=== PATIENT | female | born 1990 | race Caucasian/White ===

== ENCOUNTER 2023-02-23 11:59 | Emergency (ER) | payer MEDICAID ==
[~2023-02-23] VITALS: Ht 152.4 cm; Wt 78.6 kg
[2023-02-23 12:13] VITALS: BP 127/84; PULSE 77; RESP 14; TEMP 98.4; O2SAT 98
[2023-02-23] MEDS ORDERED: KETOROLAC 30 MG/ML VIAL IM ONE (13:10)
[2023-02-23] MEDS ORDERED: LID5T TP (14:47)
[2023-02-23 15:05] VITALS: BP 131/74; PULSE 68; RESP 14; TEMP 97.1; O2SAT 100
== END 2023-02-23 15:05 | disposition home or self-care (01) ==
LOC: MED 11:59
DX: S39.012A Strain of muscle, fascia and tendon of lower back, initial encounter (principal); R03.0 Elevated blood-pressure reading, without diagnosis of hypertension; Z79.899 Other long term (current) drug therapy; V89.2XXA Person injured in unspecified motor-vehicle accident, traffic, initial encounter; Y93.89 Activity, other specified; Y92.89 Other specified places as the place of occurrence of the external cause; Y99.8 Other external cause status
CPT/HCPCS: 72100; 81025; 96372; 99283; J1885